=== PATIENT | female | born 1930 | race Asian ===

== ENCOUNTER 2017-02-22 07:47 | Day surgery (SDC) | payer MEDICARE, OTHER ==
[~2017-02-22] VITALS: Ht 147.3 cm; Wt 54.5 kg
[~2017-02-22 07:47] MED LIST: ALEN70TA48 PO; DICLOFENAC SODIUM 0.1% 2.5 ML OPHTHALMIC SOLUTION ONE; LEVO50TA4 PO; MOXIFLOXACIN HCL 0.5% 3 ML OPHTHALMIC SOLUTION ONE; PHENYLEPHRINE HCL 2.5% 2 ML OPHTHALMIC SOLUTION ONE; RINGERS SOLUTION,LACTATED 500 ML IV ONE; TELM20 PO; TROPICAMIDE 1% 2 ML OPHTHALMIC SOLUTION ONE
[2017-02-22] MEDS ORDERED: EPINEPHrine 1:1,000 [1 MG/ML] AMP SQ ONE (07:48)
[2017-02-22] MEDS ORDERED: MIDAZOLAM HCL 2 MG/2 ML VIAL IVP ONE (07:48)
[2017-02-22] MEDS ORDERED: DEXAMETHASONE SOD PHOS 4 MG/ML VIAL IVP ONE (07:48)
[2017-02-22] MEDS ORDERED: FentaNYL CITRATE-PF 100 MCG/2 ML VIAL IVP ONE (07:48)
[2017-02-22] MEDS ORDERED: POVIDONE-IODINE 10% 15 ML SOLUTION UD TP ONE (07:48)
[2017-02-22] MEDS ORDERED: LIDOCAINE HCL/PF 1% 2 ML VIAL IM ONE (07:48)
[2017-02-22] MEDS ORDERED: HYALURONATE SOD/CHONDROITIN SOD 0.5 ML VIAL IO ONE (07:48)
[2017-02-22] MEDS ORDERED: HYALURONATE SODIUM 12 MG/ML 0.8 ML SYRINGE IO ONE (07:48)
[2017-02-22] MEDS ORDERED: TETRACAINE HCL VISCOUS 0.5% 5 ML OPHTHALMIC SOLUTION OD ONE (07:48)
[2017-02-22] MEDS ORDERED: RINGERS SOLUTION,LACTATED 500 ML IV ONE (08:00)
[2017-02-22] MEDS ORDERED: DICLOFENAC SODIUM 0.1% 2.5 ML OPHTHALMIC SOLUTION OD ONE (08:00)
[2017-02-22] MEDS ORDERED: 0.9% SODIUM CHLORIDE 10 ML SYRINGE IVP PRN (08:00)
[2017-02-22] MEDS ORDERED: MOXIFLOXACIN HCL 0.5% 3 ML OPHTHALMIC SOLUTION OD ONE (08:00)
[2017-02-22] MEDS ORDERED: TELM40 PO (08:15)
[2017-02-22] MEDS: TROPICAMIDE 1% 2 ML OPHTHALMIC SOLUTION OD SCH ×2 (08:55→09:02)
[2017-02-22] MEDS: PHENYLEPHRINE HCL 2.5% 2 ML OPHTHALMIC SOLUTION OD SCH ×2 (08:56→09:02)
== END 2017-02-22 11:35 | disposition home or self-care (01) ==
LOC: SURGERY 07:47
PROVIDERS: ATTEND Specialist
DX: H25.011 Cortical age-related cataract, right eye (principal); I10 Essential (primary) hypertension; E78.00 Pure hypercholesterolemia, unspecified; M19.90 Unspecified osteoarthritis, unspecified site; Z90.49 Acquired absence of other specified parts of digestive tract; Z90.89 Acquired absence of other organs
CPT/HCPCS: 66984; 93005; C1780; J0171; J1100; J2250; J3010; J3490 ×2; J7120

== ENCOUNTER 2017-05-10 08:55 | Day surgery (SDC) | payer MEDICARE, OTHER ==
[~2017-05-10] VITALS: Ht 147.3 cm; Wt 54.1 kg
[~2017-05-10 08:55] MED LIST changes: -ALEN70TA48 PO; -DICLOFENAC SODIUM 0.1% 2.5 ML OPHTHALMIC SOLUTION ONE; -MOXIFLOXACIN HCL 0.5% 3 ML OPHTHALMIC SOLUTION ONE; -PHENYLEPHRINE HCL 2.5% 2 ML OPHTHALMIC SOLUTION ONE; -RINGERS SOLUTION,LACTATED 500 ML IV ONE; -TELM20 PO; +TELM40 PO; -TROPICAMIDE 1% 2 ML OPHTHALMIC SOLUTION ONE
[2017-05-10] MEDS ORDERED: RINGERS SOLUTION,LACTATED 500 ML IV ONE ×2 (09:00→09:09)
[2017-05-10] MEDS ORDERED: DICLOFENAC SODIUM 0.1% 2.5 ML OPHTHALMIC SOLUTION OS ONE (09:00)
[2017-05-10] MEDS ORDERED: MOXIFLOXACIN HCL 0.5% 3 ML OPHTHALMIC SOLUTION OS ONE (09:00)
[2017-05-10] MEDS ORDERED: PHENYLEPHRINE HCL 2.5% 2 ML OPHTHALMIC SOLUTION ONE (09:09)
[2017-05-10] MEDS ORDERED: MOXIFLOXACIN HCL 0.5% 3 ML OPHTHALMIC SOLUTION ONE (09:09)
[2017-05-10] MEDS ORDERED: TROPICAMIDE 1% 2 ML OPHTHALMIC SOLUTION ONE (09:09)
[2017-05-10] MEDS: PHENYLEPHRINE HCL 2.5% 2 ML OPHTHALMIC SOLUTION OS SCH ×2 (10:03→10:09)
[2017-05-10] MEDS: TROPICAMIDE 1% 2 ML OPHTHALMIC SOLUTION OS SCH ×2 (10:04→10:09)
[2017-05-10] MEDS ORDERED: FentaNYL CITRATE-PF 100 MCG/2 ML VIAL IVP ONE (12:00)
[2017-05-10] MEDS ORDERED: MIDAZOLAM HCL 2 MG/2 ML VIAL IVP ONE (12:00)
== END 2017-05-10 12:35 | disposition home or self-care (01) ==
LOC: SURGERY 08:55
PROVIDERS: ATTEND Specialist
DX: H25.012 Cortical age-related cataract, left eye (principal); I10 Essential (primary) hypertension; E03.9 Hypothyroidism, unspecified; Z90.89 Acquired absence of other organs; Z98.41 Cataract extraction status, right eye; Z79.899 Other long term (current) drug therapy
CPT/HCPCS: 66982; C1780; J2250; J3010; J7120